=== PATIENT | female | born 1960 | race Caucasian/White ===

== ENCOUNTER → 2016-08-28 13:03 | Outpatient (CLI) | payer BC ==
[2015-06-14 07:53] VITALS: BMI 19.0
[~2016-08-28 13:03] MED LIST: SYNTHROID88 MCG PO; VITAMIN C1000 MG PO
== END | disposition home or self-care (01) ==
LOC: D.CT 13:03
DX: R31.9 Hematuria, unspecified (principal)

== ENCOUNTER → 2016-10-02 08:08 | Outpatient (CLI) | payer BC ==
[2015-06-14 07:53] VITALS: BMI 19.0
== END ==
LOC: D.MAMMO 09-04 13:00
DX: Z12.31 Encounter for screening mammogram for malignant neoplasm of breast (principal)

== ENCOUNTER → 2017-02-20 07:49 | Outpatient (CLI) | payer BC ==
[2015-06-14 07:53] VITALS: BMI 19.0
[~2017-02-20 07:49] MED LIST changes: +LEVAQUIN750 MG PO
== END | disposition home or self-care (01) ==
LOC: D.RAD 07:49
DX: M25.531 Pain in right wrist (principal)

== ENCOUNTER → 2017-03-12 10:58 | Outpatient (CLI) | payer BC ==
[2015-06-14 07:53] VITALS: BMI 19.0
== END | disposition home or self-care (01) ==
LOC: D.RAD 10:58
DX: S52.501A Unspecified fracture of the lower end of right radius, initial encounter for closed fracture (principal); X58.XXXA Exposure to other specified factors, initial encounter; Y93.89 Activity, other specified; Y92.029 Unspecified place in mobile home as the place of occurrence of the external cause

== ENCOUNTER 2017-04-18 13:09 | Observation (INO) | payer BC ==
[~2017-04-18] VITALS: Ht 172.7 cm; Wt 57.3 kg
[~2017-04-18 13:09] MED LIST changes: -LEVAQUIN750 MG PO
--- NOTE | 2017-04-18 13:30 | NUR ---
PATIENT TO ROOM AT THIS TIME. PAIN TO RLQ AT THIS TIME. 12/21. IV STARTED IN RIGHT FA. 22 G X 1 STICK. PATIENT TOLERATED WITH SMALL AMOUNT OF PAIN. DILAUDID 0.5 MG AND ZOFRAN 4 MG GIVEN IVP SLOWLY OVER 4 MINUTES. PATIENT STATED PAIN WAS BEGINING TO EASE UP. PATIENT TAKEN TO CT.
[2017-04-18 14:04] VITALS: BP 146/69; Ht 172.7 cm; Wt 57.3 kg
[2017-04-18 14:13] LABS: CREATININE - SERUM 0.5 mg/dL (0.6-1.3)
[2017-04-18 16:23] VITALS: BP 129/55
--- NOTE | 2017-04-18 18:40 | NUR ---
PATIENT RECIEVED PHENERGAN IM FOR NAUSEA AND VOMITTING. NOT TOLERATING CLEARS AT THIS TIME. IV INTACT. NO OTHER COMPLAINTS. CALL LIGHT WITHIN REACH. FAMILY AT BEDSIDE.
--- NOTE | 2017-04-18 19:40 | NUR ---
RECIEVED SHIFT REPORT. PT IS LYING IN BED. ALERT AND ORIENTED AND ABLE TO VERBALIZE NEEDS. IV IS PATENT AND FLUIDS ARE RUNNING PER ORDER. PT IS AMBULATORY BUT WAS INSTRUCTED TO CALL FOR ANY ASSISTANCE NEEDED. PT STATES PAIN IS 3/10. NO NEEDS ARE VERBALIZED AT THIS TIME. SPOUSE IS AT THE BEDSIDE. SIDE RAILS ARE UP X 2. BED IS IN LOWEST POSITION. CALL LIGHT IS WITHIN REACH.
[2017-04-18 20:00] VITALS: BP 110/62
--- NOTE | 2017-04-18 20:58 | NUR ---
URINE SENT TO LAB FOR WARRENTED TESTS.
--- NOTE | 2017-04-18 21:10 | NUR ---
SHIFT ASSESSMENT COMPLETED. PT UP TO BATHROOM AT THIS TIME. NO FURTHER NEEDS AT THIS TIME. WILL MONITOR. SIDE RAILS X 2. BED LOW. CALL LIGHT IN REACH.
[2017-04-19] VITALS: BP 98/51
[2017-04-19 04:00] VITALS: BP 118/66
[2017-04-19 06:07] LABS: BASOPHILS 0.2 % (0-2); EOSINOPHILS 1.1 % (0-7); HEMATOCRIT 36.3 % (36.0-48.0); IMMATURE GRANULOCYTES 0.2 % (0-5); LYMPHOCYTES 34.3 % (15-50); MCH 30.2 pg (26.0-34.0); MCHC 33.1 g/dL (31.0-37.0); MCV 91.4 fL (80.0-100.0); MEAN PLATELET VOLUME 9.8 fL (7.4-10.4); MONOCYTES 13.5 % (2-11); NEUTROPHILS 50.7 % (40-80); PLATELET COUNT 190 10x3/uL (130-400); RBC 3.97 10x6/uL (4.00-5.40); RDW 12.1 % (11.5-14.5); WBC 6.4 10x3/uL (4.8-10.8)
[2017-04-19 06:33] LABS: AMYLASE - SERUM 35 U/L (25-115); CALC OSMOLALITY 282 mosm/kg (275-300); CALCIUM 8.8 mg/dL (8.5-10.1); CARBON DIOXIDE 27.6 mmol/L (21.0-32.0); CHLORIDE - SERUM 105 mmol/L (98-107); CREATININE - SERUM 0.6 mg/dL (0.6-1.3); GLUCOSE 108 mg/dL (74-106); LIPASE 132 U/L (73-393); POTASSIUM - SERUM 3.7 mmol/L (3.5-5.1); SODIUM 142 mmol/L (136-145); UREA NITROGEN 11 mg/dL (7-18); eGFR NON AFRICAN AMERICAN > 90 mL/min (90-120)
--- NOTE | 2017-04-19 07:50 | NUR ---
REQUESTED AND GIVNE 0.5 MG DILAUDID SLOW IVP FOR C/O RIGHT LOWER QUAD BACK PAIN LEVEL 5. WILL MONITOR.
[2017-04-19 08:38] VITALS: BP 106/63
--- NOTE | 2017-04-19 08:38 | NUR ---
AWAKE AND ALERT. ORIENTED X3. REPORTS PAIN IMPROVED AT THIS TIME. LUNGS ARE CLEAR BILATERALLY, NO COUGH NOTED. SKIN IS INTACT WITHOUT REDNESS. IV TO RIGHT FOREARM IS PATENT WITHOUT REDNESS AT INSERTION SITE. SCD'S OFF AT THIS TIME. DENIES NEEDS. ATE ALL OF BREAKFAST SHE WANTED.
[2017-04-19 12:59] VITALS: BP 103/58
--- NOTE | 2017-04-19 14:58 | NUR ---
Patient Name: LAURI MENDOZA Admission Status: Elective Accout number: [id number] Admission Date: 04-18-2017 : 1960 Admission Diagnosis: Attending: MELISSA CASTANEDA Current LOS: 1 Anticipated DC Date: 04-20-2017 Planned Disposition: Home Primary Insurance: [employer] [facility] Discharge Planning Comments: CM MET WITH PATIENT REGARDING D/C NEEDS AND PLANS. PATIENT IS INDEPENDENT WITH HER CARE. PATIENTS PCP IS DR. CASTANEDA AND PHARMACY IS [facility] ON [address] PATIENTS FAMILY WILL DRIVE HER HOME AT DISCHARGE. PCP DR. [facility] [address]- [phone] CHELA (SPOUSE) [phone] Assembly Worker: Patricia Horton Is the patient Alert and Oriented? Yes 0 * PCP DR. CASTANEDA 0 * Pharmacy [facility] [address] 0 * Preadmission Environment Home with Family 0 * ADLs Independent 0 * List name and contact numbers for known caregivers / representatives who currently or will assist patient after discharge: CHELA (SPOUSE) [phone] * Community resources currently utilized None 0 * Additional services required to return to the preadmission environment? Yes 0 * Can the patient safely return to the preadmission environment? Yes 0 * Has this patient been hospitalized within the prior 30 days at any hospital? No 0 Grand Total: 0
[2017-04-19 15:52] VITALS: BP 103/57
--- NOTE | 2017-04-19 19:13 | NUR ---
RESTING QUIETLY IN BED. NO CHANGES NOTED. DENIES NEEDS.
[2017-04-19 21:49] VITALS: BP 112/57
[2017-04-20 01:03] VITALS: BP 103/53
[2017-04-20 05:24] VITALS: BP 86/41
[2017-04-20] MEDS ORDERED: LEVAQUIN750 MG PO (07:21)
--- NOTE | 2017-04-20 07:32 | HP ---
PATIENT: LAURI MENDOZA MEDICAL RECORD: [id number] ACCOUNT: [id number] LOCATION:[facility] [id number] : 58 ADMISSION DATE: 04/18/17 HISTORY AND PHYSICAL EXAMINATION REASON FOR ADMISSION: Severe abdominal pain. HISTORY OF PRESENT ILLNESS: The patient is a 57-year-old female 2 who presents with a 2-day history of right flank and lower quadrant pain. She stated that 2 weeks ago, she had onset of a sharp pain suprapubically lasted an hour or two and went away. She denied any dysuria. For the last 2 days, she had pain that has gradually gotten worse and crescendo this morning. It started in her right flank and now is more severe in her right lower quadrant. It hurts to raise her right leg and to walk. She had a normal bowel movement this morning. She has had nausea in the office with the pain. She denies fever, dysuria, or urinary odor. No history of kidney stones. PAST MEDICAL HISTORY: History of thyroid nodule post thyroidectomy and hypothyroidism, postmenopausal surgically, history of uterine fibroids, history of migraine headaches, hyperlipidemia diet controlled, history of lumbar lordosis, and lumbar disk disease. The patient with a history of microscopic hematuria with negative cystoscopy 2016. PAST SURGICAL HISTORY: Thyroidectomy, uterine fibroid ablation, CHRIS-BSO, elective breast implants, left breast biopsy. She had left shoulder repair for rotator cuff. FAMILY HISTORY: Father from [facility], severe peripheral vascular disease, lung cancer, and aortic aneurysm rupture. Mother of Cristina Gehrig's disease. Her mother's twin had breast cancer. ALLERGIES: MORPHINE, PRAVASTATIN, LIPITOR AND CRESTOR. HOME MEDICATIONS: Dicyclomine 20 mg p.o. t.i.d. a.c. meals p.r.n. abdominal pain, rizatriptan 10 mg sublingual p.r.n. migraine headache, levothyroxine 100 mcg p.o. q.a.m., Skelaxin 800 mg at bedtime p.r.n. low back pain. SOCIAL HISTORY: She is , has 2 grown children. 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 Nonsmoker. Very rare beer drinker. REVIEW OF SYSTEMS: GENERAL: She felt bad the last 2 days with fatigue. Denies fever. She has had poor appetite. HEENT: No recent visual change, sinus congestion, or sore throat. RESPIRATORY: No SOB or cough. CARDIAC: No chest pain, claudication, or edema. GASTROINTESTINAL: Nausea due to pain this morning. She has had a normal bowel movement this morning. No melena. She has severe abdominal pain in the right lower flank radiating to the right lower quadrant and across her suprapubic area. Denies diarrhea. GENITOURINARY: Denies dysuria, incontinence, frequency, or hematuria. MUSCULOSKELETAL: Has chronic arthralgias in her lumbar spine. ENDOCRINE: Denies polyuria, polydipsia, heat or cold intolerance. NEUROLOGIC: No history of stroke, TIA. She has a history of migraine headaches that have improved postmenopausally. HISTORY AND PHYSICAL [id number] LAURI MENDOZA PHYSICAL EXAMINATION: VITAL SIGNS: Temperature is 99.7 orally, heart rate is 100 and regular, respirations are 18, blood pressures 124/82, weight is 126, height is 5 feet 7 inches. GENERAL: The patient is moderately ill, but alert. HEENT: Eyes are clear with pterygium bilaterally. Sclerae nonicteric. Oropharynx, dry mucous membranes. NECK: Supple. CHEST: Clear without wheeze or rales. HEART: Regular rate without murmur. BREASTS: Implants bilaterally. Shoulder shows surgical scar on the left and previous rotator cuff repair. ABDOMEN: Soft, exquisitely tender over McBurney's point with rebound from left to right. No masses felt. Bowel sounds are active. She has 2+ right flank pain as well. PELVIC: Deferred. EXTREMITIES: No CC&E. LABORATORY DATA: Her white count is 11.8 thousand with left shift, H&H is normal. Urinalysis shows 5-10 red cells, 2-4 white cells, 3+ bacteria. Chemistries are pending. ASSESSMENT: Acute abdomen with appendicitis or pyelonephritis. PLAN: The patient will be admitted for IV pain control, IV fluids and stat CT scan of the abdomen and pelvis with contrast. Needs surgical consult if indicated. TRANSINT:[id number] Voice Confirmation ID: [id number] DOCUMENT ID: [id number] MELISSA CASTANEDA MD at 0732 CC: [id number] DICTATION DATE: 12/06/17 1300 INVOICING SPECIALIST: 04/18/17 1333 ADM IN [facility] [address] [id number]
--- NOTE | 2017-04-20 08:15 | NUR ---
AWAKE AND ALERT. ORIENTED X3. NO C/O PAIN AT THIS TIME. LUNGS ARE CLEAR BILATERALLY, NO COUGH NOTED. SKIN IS INTACT WITHOUT REDNESS. IV TO RIGHT FOREARM IS PATENT WITHOUT REDNESS AT INSERTION SITE. DENIES NEEDS. SITTING UP IN BED EATING BREAKFAST.
[2017-04-20 08:26] VITALS: BP 127/56
--- NOTE | 2017-04-20 10:45 | NUR ---
DISCHARGED TO HOME WITH FAMILY AMBULATORY. DISCHARGE INSTRUCTIONS GIVEN BOTH VERBALLY AND WRITTEN. ALL QUESTIONS ANSWERED. PATIENT VERBALIZED UNDERSTANDING OF SAME. NEW PRESCRIPTIONS ESCRIBED TO PHARMACY OF CHOICE. ALL BELONGINGS WITH PATIENT.
--- NOTE | 2017-04-20 11:14 | NUR ---
CM REASSESSMENT NOTE: PATIENT DISCHARGED HOME TODAY/FAMILY DROVE PATIENT. PATIENT DENIED NEEDS FOR HOME HEALTH.
== END 2017-04-20 10:45 | disposition home or self-care (01) ==
LOC: D.OPS 13:09 → D.MS 13:10 → OBSVTIME 13:10 → D.MS 04-20 10:45
PROVIDERS: ADMIT Family Medicine
DX: N12 Tubulo-interstitial nephritis, not specified as acute or chronic (principal); E03.9 Hypothyroidism, unspecified

== ENCOUNTER → 2018-04-11 16:55 | Outpatient (CLI) | payer BC ==
[2017-04-18 14:04] VITALS: BMI 19.2
[~2018-04-11 16:55] MED LIST changes: +LEVAQUIN750 MG PO
== END | disposition home or self-care (01) ==
LOC: D.MAMMO 15:30
DX: Z12.31 Encounter for screening mammogram for malignant neoplasm of breast (principal)